=== PATIENT | female | born 1950 | race Caucasian/White ===

== ENCOUNTER → 2018-03-14 | Outpatient (CLI) | payer MEDICARE, OTHER ==
[~2018-03-14] MED LIST: BUPIVACAINE MPF 0.25% 10 ML VIAL. ONE; IOHEXOL 300 MG/ML 50 ML VIAL. ONE; LIDOCAINE 1% PF 30 ML VIAL. ONE; methylPREDNISolone ACETATE 80 MG/ML VIAL. ONE
== END ==
LOC: SURG 12:55
PROVIDERS: ATTEND Anesthesiology Pain Medicine
DX: M47.816 Spondylosis without myelopathy or radiculopathy, lumbar region (principal); G89.29 Other chronic pain
CPT/HCPCS: 64493; 64494; J1040; J2001; J3490; Q9967

== ENCOUNTER → 2018-04-11 | Outpatient (CLI) | payer MEDICARE, OTHER ==
[~2018-04-11] MED LIST changes: +0.9 % SODIUM CHLORIDE 10 ML VIAL ONE; -BUPIVACAINE MPF 0.25% 10 ML VIAL. ONE
== END | disposition home or self-care (01) ==
LOC: SURG 14:29
PROVIDERS: ATTEND Anesthesiology Pain Medicine
DX: M48.061 Spinal stenosis, lumbar region without neurogenic claudication (principal); M54.16 Radiculopathy, lumbar region
CPT/HCPCS: 62323; J1040; J2001; Q9967; 64483

== ENCOUNTER → 2018-06-06 | Outpatient (CLI) | payer MEDICARE, OTHER ==
[~2018-06-06] MED LIST changes: -0.9 % SODIUM CHLORIDE 10 ML VIAL ONE; +HYDR-2766 PO; -IOHEXOL 300 MG/ML 50 ML VIAL. ONE; +LEVO125T5 PO; -LIDOCAINE 1% PF 30 ML VIAL. ONE; +METF500T16 PO; +MULT1TAB52 PO; +PANT40TA5 PO; -methylPREDNISolone ACETATE 80 MG/ML VIAL. ONE
[2018-06-06 08:49] LABS: BASO # 0.1 x10^3/uL (0.0-0.2); BASO % 1 % (0-3); EOS # 0.3 x10^3/uL (0.0-0.7); EOS % 5 % (0-3); HEMATOCRIT 42.9 % (36.0-47.0); HEMOGLOBIN 14.3 g/dL (12.0-15.5); LYMPH % 31 % (24-48); MEAN CORPUSCULAR HEMOGLOBIN 31 pg (25-35); MEAN CORPUSCULAR HGB CONC 34 g/dL (31-37); MEAN CORPUSCULAR VOLUME 93 fL (79-100); MONO # 0.5 x10^3/uL (0.0-1.1); MONO % 8 % (0-9); NEUT # 3.4 x10^3uL (1.8-7.7); NEUT % 54 % (31-73); PLATELET COUNT 248 x10^3/uL (140-400); RED BLOOD COUNT 4.63 x10^6/uL (3.50-5.40); RED CELL DISTRIBUTION WIDTH 14.2 % (11.5-14.5); WHITE BLOOD COUNT 6.3 x10^3/uL (4.0-11.0)
[2018-06-06 09:06] LABS: BACTERIA,URINE 0 /HPF (0-FEW); BILIRUBIN,URINE NEG (NEG); CLARITY,URINE CLEAR; COLOR,URINE YELLOW; GLUCOSE,URINE NEG (NEG); NITRITE,URINE NEG (NEG); RBC,URINE RARE /HPF (0-2); SQUAMOUS EPITHELIAL CELL,UR FEW /LPF; UROBILINOGEN,URINE 0.2 mg/dL (0.2 mg/dL); WBC,URINE OCC /HPF (0-4)
== END | disposition home or self-care (01) ==
LOC: LAB 07:57
PROVIDERS: ATTEND Anesthesiology Pain Medicine
DX: Z01.812 Encounter for preprocedural laboratory examination (principal); M48.061 Spinal stenosis, lumbar region without neurogenic claudication; M47.816 Spondylosis without myelopathy or radiculopathy, lumbar region
CPT/HCPCS: 36415; 81001; 85025

== ENCOUNTER → 2018-06-13 | Day surgery (SDC) | payer MEDICARE, OTHER ==
[~2018-06-13] MED LIST changes: +ALBUTEROL SULFATE 2.5 MG/3 ML NEBU. NEB PRN; +ATROPINE 0.5 MG/5 ML DISP.SYRIN. IV PRN; +BACITRACIN 50,000 UNIT VIAL. ONE; +BUPIVACAINE MPF 0.5% 30 ML VIAL. ONE; +CEPH-264 PO; +DEXAMETHASONE SOD PHOS 4 MG/ML VIAL ONE; +IV RINGERS SOLUTION,LACTATED 1,000 ML IV SCH; +KETAMINE HCL 500 MG/10 ML VIAL. ONE; +LABETALOL 100 MG/20 ML VIAL. IV PRN; +LIDOCAINE 1% PF 30 ML VIAL. ONE; +LIDOCAINE 2% PF Vial for OR 5 ML VIAL. ONE; +MIDAZOLAM HCL PF 2 MG/2 ML VIAL. ONE; +MORPHINE SULFATE 2 MG/ML DISP.SYRIN. IV PRN; +NALOXONE 0.4 MG/ML VIAL. IV PRN; +ONDANSETRON PF 4 MG/2 ML VIAL. IV PRN; +PROCHLORPERAZINE 10 MG/2 ML VIAL. IV PRN; +PROPOFOL 20 ML IV ONE; +PROPOFOL 40 ML IV ONE; +hydrALAZINE 20 MG/ML VIAL. IV PRN; +oxyCODONE/APAP 5/325 1 TAB TABLET PO PRN
[2018-06-13 12:29] VITALS: BP 135/80
== END | disposition home or self-care (01) ==
LOC: SURG 08:35
PROVIDERS: ATTEND Anesthesiology Pain Medicine
DX: M51.16 Intervertebral disc disorders with radiculopathy, lumbar region (principal); E11.9 Type 2 diabetes mellitus without complications; K21.9 Gastro-esophageal reflux disease without esophagitis; M19.90 Unspecified osteoarthritis, unspecified site; Z98.890 Other specified postprocedural states; Z79.899 Other long term (current) drug therapy; Z79.84 Long term (current) use of oral hypoglycemic drugs
CPT/HCPCS: 62380; J0690; J1100; J2001; J2250; J2704; J3010; J3490; J7120

== ENCOUNTER → 2021-08-17 | Outpatient (CLI) | payer MEDICARE, OTHER ==
[2018-06-13 12:29] VITALS: BP 135/80
[~2021-08-17] MED LIST changes: -ALBUTEROL SULFATE 2.5 MG/3 ML NEBU. NEB PRN; -ATROPINE 0.5 MG/5 ML DISP.SYRIN. IV PRN; -BACITRACIN 50,000 UNIT VIAL. ONE; -BUPIVACAINE MPF 0.5% 30 ML VIAL. ONE; -DEXAMETHASONE SOD PHOS 4 MG/ML VIAL ONE; -HYDR-2766 PO; +HYDR-2769 PO; -IV RINGERS SOLUTION,LACTATED 1,000 ML IV SCH; -KETAMINE HCL 500 MG/10 ML VIAL. ONE; -LABETALOL 100 MG/20 ML VIAL. IV PRN; -LIDOCAINE 1% PF 30 ML VIAL. ONE; -LIDOCAINE 2% PF Vial for OR 5 ML VIAL. ONE; -MIDAZOLAM HCL PF 2 MG/2 ML VIAL. ONE; -MORPHINE SULFATE 2 MG/ML DISP.SYRIN. IV PRN; +MULT-445 PO; -MULT1TAB52 PO; -NALOXONE 0.4 MG/ML VIAL. IV PRN; -ONDANSETRON PF 4 MG/2 ML VIAL. IV PRN; -PANT40TA5 PO; +PANT40TA6 PO; -PROCHLORPERAZINE 10 MG/2 ML VIAL. IV PRN; -PROPOFOL 20 ML IV ONE; -PROPOFOL 40 ML IV ONE; -hydrALAZINE 20 MG/ML VIAL. IV PRN; -oxyCODONE/APAP 5/325 1 TAB TABLET PO PRN
--- NOTE | 2021-08-17 13:36 | RAD ---
Left lower extremity venous Doppler dated 08/17/2021 1:33 PM COMPARISON: none. CLINICAL INDICATION: Pain and swelling Reason: LLE PAIN AND SWELLING / Spl. Instructions: / History: FINDINGS: Grayscale, color-flow and spectral waveform analysis performed to include the deep venous system of l eft lower extremity. There is normal compressibility, phasicity and augmentation of flow throughout. No filling defects are seen. IMPRESSION: No evidence of left lower extremity deep vein thrombosis. Electronically signed by: Jordin Pro MD (08/17/2021 1:33 PM) [email or web address]
== END ==
LOC: US 13:11
PROVIDERS: ATTEND Family Medicine
DX: M25.562 Pain in left knee (principal); M79.89 Other specified soft tissue disorders
CPT/HCPCS: 93971